=== PATIENT | male | born 1995 | race Caucasian/White ===

== ENCOUNTER 2017-01-09 23:19 | Emergency (ER) | payer BC ==
[~2017-01-09] VITALS: Ht 180.3 cm; Wt 90.9 kg
[~2017-01-09 23:19] MED LIST: CIPRO 250MG TA250 MG PO; MOTRIN 800800 MG/TAB PO; OCUFLOX OPHTH DR5 ML OS; PERCOCET 325 MG1 TA2 PO; PREDNISONE20 MG PO; PROAIR HFA0.09 MG/AC IH; TYLENOL 325MG325 MG PO; ZITHROMAX Z PA250 MG PO
[2017-01-09 23:21] VITALS: TEMP 98.1
[2017-01-09] MEDS ORDERED: PROAIR HFA0.09 MG/AC IH (23:23)
[2017-01-10 00:19] VITALS: BP 123/78; PULSE 108
== END 2017-01-10 00:24 | disposition home or self-care (01) ==
LOC: COL.ER 23:19
DX: J98.01 Acute bronchospasm (principal); J45.909 Unspecified asthma, uncomplicated; Z87.891 Personal history of nicotine dependence

== ENCOUNTER 2017-04-29 11:20 | Emergency (ER) | payer BC ==
[~2017-04-29] VITALS: Ht 177.8 cm; Wt 94.7 kg
[2017-04-29 11:33] VITALS: BP 122/64; TEMP 98.1
[2017-04-29] MEDS ORDERED: ZITHROMAX Z PA250 MG PO (13:24)
[2017-04-29 13:38] VITALS: PULSE 85
== END 2017-04-29 13:39 | disposition home or self-care (01) ==
LOC: COL.ER 11:20
DX: J40 Bronchitis, not specified as acute or chronic (principal); Z87.891 Personal history of nicotine dependence

== ENCOUNTER 2017-08-01 13:11 | Emergency (ER) | payer BC ==
[~2017-08-01] VITALS: Ht 180.3 cm; Wt 93.6 kg
[2017-08-01 13:17] VITALS: BP 125/79
[2017-08-01 14:00] LABS: INFLUENZA A POSITIVE; INFLUENZA B NEGATIVE
[2017-08-01] MEDS ORDERED: TAMIFLU 75MG75 MG PO (14:18)
[2017-08-01 14:25] VITALS: PULSE 120; TEMP 100.7
== END 2017-08-01 14:33 | disposition home or self-care (01) ==
LOC: COL.ER 13:11
PROVIDERS: Physician Assistant
DX: J09.X2 Influenza due to identified novel influenza A virus with other respiratory manifestations (principal); J45.909 Unspecified asthma, uncomplicated

== ENCOUNTER 2018-04-27 01:18 | Emergency (ER) | payer BC ==
[~2018-04-27] VITALS: Ht 180.3 cm; Wt 100.0 kg
[~2018-04-27 01:18] MED LIST changes: +TAMIFLU 75MG75 MG PO
[2018-04-27 01:24] VITALS: TEMP 98.5
[2018-04-27 03:25] VITALS: BP 104/54; PULSE 85
[2018-04-27] MEDS ORDERED: PROVENTIL0.09 MG/A1 IH (03:30)
[2018-04-27] MEDS ORDERED: PREDNISONE20 MG PO (03:36)
== END 2018-04-27 04:05 | disposition home or self-care (01) ==
LOC: COL.ER 01:18
DX: J45.909 Unspecified asthma, uncomplicated (principal)
CPT/HCPCS: J7512